=== PATIENT | female | born 1990 | race Caucasian/White ===

== ENCOUNTER 2020-04-27 14:23 | Outpatient (REF) | payer OTHER, SELFPAY ==
[2020-04-27 15:11] LABS: MANUAL DIFF FLAG NO
[2020-04-27 15:27] LABS: Hematocrit 40.7 % (37-47); Hemoglobin 13.1 g/dl (12.0-16.0); Imm Gran Abs Auto 0.06 X10*3/uL (0.00-0.03); Imm Gran Pct Auto 0.7 % (0.0-0.4); Lymphocytes Absolute Auto 1.4 X10*3/uL (1.2-4.9); Lymphocytes Percent Auto 17.1 % (20-40); Mean Corpuscular HGB Conc 32.2 g/dl (31.0-35.0); Mean Corpuscular Hemoglobin 31.9 pg (27.0-33.0); Monocytes Absolute Auto 0.6 X10*3/uL (0.1-1.2); Monocytes Percent Auto 7.3 % (2-11); Neutrophils Percent Auto 74.9 % (45-73); Platelet Count 223 X10*3/uL (160-400); Red Blood Count 4.11 X10*6/uL (4.20-5.50); Red Cell Distribution Width 12.3 % (11.0-16.0); White Blood Count 8.1 X10*3/uL (4.8-10.8)
[2020-04-27 15:38] LABS: Alanine Aminotransferase 12 U/L (0-31); Anion Gap 15 (12-20); Aspartate Amino Transferase 14 U/L (5-31); Blood Urea Nitrogen 9 mg/dL (9-16); Calcium 9.2 mg/dL (8.4-10.2); Carbon Dioxide 23 mmol/L (22-29); Chloride 105 mmol/L (96-108); Cholesterol 200 mg/dL; Estimated Glomerular Filt Rate > 60; Glucose Fasting 79 mg/dL (60-99); HDL Cholesterol 62 mg/dL; LDL Cholesterol Calculated 127 mg/dl; Potassium 4.6 mmol/L (3.3-5.1); Sodium 138 mmol/L (135-145); Triglycerides 56 mg/dL
[2020-04-27 16:08] LABS: TSH reflex Free T4 1.52 uIU/mL (0.32-4.0); Vitamin D 25-OH Total 11.2 ng/mL (>30)
[2020-04-27 16:11] LABS: Folate 15.6 ng/mL (> or = 4.0); Vitamin B12 461 pg/mL (200-900)
[2020-04-27 17:19] LABS: Glucose Urine UA NEG (NEG); Leukocyte Esterase Urine NEG (NEG); Nitrite Urine NEG (NEG); PH 5.5 (5.0-8.0); Specific Gravity - Urine >= 1.030 (1.005-1.025); Urine Blood NEG (NEG); Urine Ketones 15 MG/DL (NEG); Urine Protein NEG (NEG-TRACE)
[2020-04-27 17:21] LABS: Appearance Urine HAZY; Color Urine YELLOW
[2020-04-27 17:31] LABS: Alanine Aminotransferase 12 U/L (0-31); Albumin Level 4.6 g/dL (3.5-5.0); Alkaline Phosphatase 118 U/L (39-117); Anion Gap 16 (12-20); Aspartate Amino Transferase 15 U/L (5-31); Bilirubin Total 0.7 mg/dL (0.0-1.0); Blood Urea Nitrogen 8 mg/dL (9-16); C Reactive Protein 3.21 mg/dL (< or = 0.50); Calcium 9.2 mg/dL (8.4-10.2); Carbon Dioxide 23 mmol/L (22-29); Chloride 104 mmol/L (96-108); Estimated Glomerular Filt Rate > 60; Glucose Random 77 mg/dL (60-115); Potassium 4.4 mmol/L (3.3-5.1); Rheumatoid Factor < 15.0 IU/mL (<15.0); Sodium 139 mmol/L (135-145); Total Protein 7.9 g/dL (6.5-8.0)
[2020-04-27 17:39] LABS: Bacteria Urine 1+ /LPF; Mucus Urine 1+ /LPF; Squamous Epithelial Cell Urine 2+ /LPF
[2020-04-27 18:08] LABS: Erythrocyte Sedimentation Rate 30 MM/HR (0-20)
[2020-04-28 13:01] LABS: Anti DNA DS Antibody <1 IU/mL; Antibody to SS-A Antigen <1.0 NEG AI (<1.0 NEG); Antibody to SS-B Antigen <1.0 NEG AI (<1.0 NEG); Complement C3 161 mg/dL (83-193); SM/Ribonucleoprotein Ab <1.0 NEG AI (<1.0 NEG); Smith Protein <1.0 NEG AI (<1.0 NEG)
[2020-04-30 13:47] LABS: Cyclic Citrullinated Peptide <16 UNITS
[2020-04-30 22:17] LABS: Anti Nuclear Antibody Screen POSITIVE (NEGATIVE); Anti Nuclear Antibody Titer 1:40 titer
[2020-05-03 07:02] LABS: Aldolase 5.5 U/L (<=8.1)
[2020-05-03 22:32] LABS: EJ Autoantibodies NOT DETECTED (NOT DETECTED); JO-1 Antibody <1.0 NEG AI (<1.0 NEG); MI 2 Autoantibodies NOT DETECTED (NOT DETECTED); OJ Autoantibodies NOT DETECTED (NOT DETECTED); PL 12 Autoantibodies NOT DETECTED (NOT DETECTED); PL 7 Autoantibodies NOT DETECTED (NOT DETECTED)
== END 2020-04-27 14:24 | disposition home or self-care (01) ==
LOC: HO.LAB 14:23
PROVIDERS: Student in an Organized Health Care Education/Training Program; PCP Internal Medicine; Visit Provider Internal Medicine
DX: Z00.01 Encounter for general adult medical examination with abnormal findings (principal); I10 Essential (primary) hypertension; M33.90 Dermatopolymyositis, unspecified, organ involvement unspecified
CPT/HCPCS: 36415; 80048; 80053; 80061; 81001; 82085; 82306; 82550; 82607; 82746; 84443; 84450; 84460; 85025; 85652; 86038; 86039; 86140; 86160; 86200; 86225; 86235; 86431; 99202

== ENCOUNTER 2020-05-07 09:40 | Outpatient (REF) | payer OTHER, SELFPAY ==
--- NOTE | ~2020-05-07 | XR_ITS ---
EXAMINATION: BILATERAL ELBOW X-RAY CLINICAL INFORMATION: Dramatic polymyositis COMPARISON: None TECHNIQUE: 3 views of each elbow FINDINGS: Bone alignment is normal. No fracture or dislocation is seen. Joint spaces are normal. There is no joint effusion. Soft tissues are normal. XR/XR elbow RT 2V IMPRESSION: Normal elbows.
--- NOTE | ~2020-05-07 | XR_ITS ---
EXAMINATION: BILATERAL ELBOW X-RAY CLINICAL INFORMATION: Dramatic polymyositis COMPARISON: None TECHNIQUE: 3 views of each elbow FINDINGS: Bone alignment is normal. No fracture or dislocation is seen. Joint spaces are normal. There is no joint effusion. Soft tissues are normal. XR/XR elbow LT 2V IMPRESSION: Normal elbows.
== END 2020-05-07 09:41 | disposition home or self-care (01) ==
LOC: HO.XRAY 09:40
PROVIDERS: PCP Internal Medicine; Visit Provider Student in an Organized Health Care Education/Training Program
DX: M33.90 Dermatopolymyositis, unspecified, organ involvement unspecified (principal)
CPT/HCPCS: 73070

== ENCOUNTER → 2020-05-21 12:53 | Outpatient (BNVA) | payer OTHER, SELFPAY | PROVIDERS: Visit Provider Student in an Organized Health Care Education/Training Program | DX: M33.90 Dermatopolymyositis, unspecified, organ involvement unspecified (principal); M25.521 Pain in right elbow; M25.522 Pain in left elbow | CPT/HCPCS: 99212 ==

== ENCOUNTER 2020-06-11 10:22 | Outpatient (REF) | payer OTHER, SELFPAY ==
[2020-06-12 10:41] LABS: CT PCR NOT DETECTED (Not Detect.); NG PCR NOT DETECTED (Not Detect.)
[2020-06-12 11:57] LABS: BV Int Neg Control Negative (Negative); BV Int Pos Control Positive (Positive)
== END 2020-06-11 10:23 | disposition home or self-care (01) ==
LOC: HO.LAB 10:22
PROVIDERS: PCP Internal Medicine; Visit Provider Advanced Practice Midwife
DX: Z01.419 Encounter for gynecological examination (general) (routine) without abnormal findings (principal); Z11.3 Encounter for screening for infections with a predominantly sexual mode of transmission; R10.2 Pelvic and perineal pain; N89.8 Other specified noninflammatory disorders of vagina; Z20.2 Contact with and (suspected) exposure to infections with a predominantly sexual mode of transmission
CPT/HCPCS: 87480; 87491; 87510; 87591; 87660

== ENCOUNTER → 2020-06-30 09:59 | Outpatient (BNVA) | payer OTHER, SELFPAY | PROVIDERS: PCP Internal Medicine; Visit Provider Advanced Practice Midwife | DX: Z30.433 Encounter for removal and reinsertion of intrauterine contraceptive device (principal) | CPT/HCPCS: 58300; 58301; 81025 ==

== ENCOUNTER 2020-10-19 12:55 | Outpatient (REF) | payer OTHER, SELFPAY ==
--- NOTE | ~2020-10-19 | XR_ITS ---
EXAMINATION: XR ANKLE, RIGHT CLINICAL INFORMATION: Pain right ankle. M79.671. COMPARISON: None TECHNIQUE: Right ankle is imaged in 3 views. FINDINGS: There is mild soft tissue swelling lateral side distal to malleolus. There is a fine 3 mm linear ossification in the talocalcaneal region which may represent an acute cortical avulsion. There is an adjacent larger corticated ossicle which is likely not acute. The malleoli are intact and the ankle mortise is symmetric. The talar dome shows no osteochondral lesion. There is no ankle capsular effusion. The retrocalcaneal recess is preserved. The subtalar joint appears normal. There are small calcaneal spurs. XR/XR ankle RT min 3V IMPRESSION: 1. Mild lateral soft tissue swelling. Fine 3 mm linear ossification at talocalcaneal region, possibly acute avulsion. Clinically correlate. 2. Otherwise, no fracture or dislocation. No ankle capsular effusion.
== END 2020-10-19 12:56 | disposition home or self-care (01) ==
LOC: HO.HMGCX 12:55
PROVIDERS: PCP Internal Medicine; Visit Provider Internal Medicine
DX: Z13.89 Encounter for screening for other disorder (principal)
CPT/HCPCS: 73610